=== PATIENT | male | born 1960 | race Caucasian/White ===

== ENCOUNTER 2017-09-05 15:23 | Emergency (ER) | payer SELFPAY ==
[2017-09-05 15:23] VITALS: BMI 26.4
[2017-09-05 15:49] VITALS: RESP 18; O2SAT 98
--- NOTE | 2017-09-05 16:02 | ED PDOC ---
Arrival/HPI - General Chief Complaint: Flu-like Symptoms Time Seen by Provider: 09/05/17 15:38 Historian: Patient - History of Present Illness Narrative History of Present Illness (Text): 09/05/17 15:59 57yo male with PMhx of hypertension present with complaint of generalized body ache, mild nonproductive cough since this morning. did not take any medication. Denies fever, chest pain, nausea, vomiting, abdominal pain, sick contact. Past Medical History - Provider Review Nursing Documentation Reviewed: Yes - Infectious Disease Hx of Infectious Diseases: None - Tetanus Immunization Tetanus Immunization: Unknown - Past Medical History Past Medical History: No Previous - Cardiac Hx Hypertension: Yes - Pulmonary Hx Respiratory Disorders: No - Neurological Hx Neurological Disorder: No - HEENT Hx HEENT Disorder: No - Renal Hx Renal Disorder: No - Endocrine/Metabolic Hx Endocrine Disorders: No - Hematological/Oncological Hx Blood Disorders: No - Integumentary Hx Dermatological Disorder: No - Musculoskeletal/Rheumatological Hx Musculoskeletal Disorders: No - Gastrointestinal Hx Gastrointestinal Disorders: No - Genitourinary/Gynecological Hx Genitourinary Disorders: No - Psychiatric Hx Depression: No Hx Substance Use: No - Past Surgical History Past Surgical History: No Previous - Anesthesia Hx Anesthesia: No - Suicidal Assessment Feels Threatened In Home Enviroment: No Family/Social History - Physician Review Nursing Documentation Reviewed: Yes Family/Social History: Unknown Family HX Smoking Status: Never Smoked Hx Alcohol Use: No Hx Substance Use: No Hx Substance Use Treatment: No Allergies/Home Meds Allergies/Adverse Reactions: Allergies No Known Allergies Allergy (Verified 11/16/13 20:21) Home Medications: Home Meds Medication Instructions Recorded Confirmed Amlodipine Besylate 10 mg PO DAILY 10/07/13 09/05/17 Review of Systems - Physician Review All systems were reviewed & negative as marked: Yes - Review of Systems Constitutional: Fatigue Eyes: Normal ENT: Sore Throat Respiratory: Cough Cardiovascular: Normal Gastrointestinal: Normal Genitourinary Male: Normal Musculoskeletal: Normal Skin: Normal Neurological: Normal Endocrine: Normal Hemo/Lymphatic: Normal Psychiatric: Normal Physical Exam Vital Signs Reviewed: Yes Vital Signs Temp Pulse Resp BP Pulse Ox 09/05/17 17:14 98.9 F 75 18 138/75 98 09/05/17 16:04 99.3 F 09/05/17 15:23 99.3 F 83 18 140/86 98 Temperature: Afebrile Blood Pressure: Normal Pulse: Regular Respiratory Rate: Normal Appearance: Positive for: Well-Appearing, Non-Toxic, Comfortable Pain Distress: None Mental Status: Positive for: Alert and Oriented X 3 - Systems Exam Head: Present: Atraumatic, Normocephalic Pupils: Present: PERRL Extroacular Muscles: Present: EOMI Conjunctiva: Present: Normal Mouth: Present: Moist Mucous Membranes Pharnyx: Present: Normal. No: ERYTHEMA, EXUDATE, TONSILS ENLARGED, Peritonsilar Swelling, Uvular Deviation, Muffled/Hoarse Voice, Strider, Soft Palate/Uvular Edema Neck: Present: Normal Range of Motion Respiratory/Chest: Present: Clear to Auscultation, Good Air Exchange. No: Respiratory Distress, Accessory Muscle Use, Wheezes, Decreased Breath Sounds, Rales, Retracting, Rhonchi Cardiovascular: Present: Regular Rate and Rhythm, Normal S1, S2. No: Murmurs Abdomen: Present: Normal Bowel Sounds. No: Tenderness, Distention, Peritoneal Signs Back: Present: Normal Inspection Upper Extremity: Present: Normal Inspection. No: Cyanosis, Edema Lower Extremity: Present: Normal Inspection. No: Edema Neurological: Present: GCS=15, CN II-XII Intact, Speech Normal Skin: Present: Warm, Dry, Normal Color. No: Rashes Psychiatric: Present: Alert, Oriented x 3, Normal Insight, Normal Concentration Medical Decision Making ED Course and Treatment: 09/05/17 17:07 Pt was hemodynamically stable and comfortable in ED. Ibuprofen was given in ED for body pain Rapid strep and flu was negative CXR nad 09/05/17 18:05 All result was DW the pt. His symptoms likely viral. will DC home with antitussive. Advised to take ibuprofen for pain. Rest and drink plenty of fluid. Referred to his PMD. TRT ED for any new or worsening symptoms. - Lab Interpretations Lab Results: Lab Results 09/05/17 16:07: Influenza Typ A,B (EIA) Negative for flu a/b, Grp A Beta Strep Ag Negative - RAD Interpretation Radiology Orders: 09/05/17 17:07 CHEST TWO VIEWS (PA/LAT) [RAD] Stat - Medication Orders Current Medication Orders: Discontinued Medications Ibuprofen (Motrin Tab) 600 mg PO STAT STA Stop: 09/05/17 15:53 Last Admin: 09/05/17 16:04 Dose: 600 mg MAR Pain/Vitals Document 09/05/17 16:04 ALVA (Rec: 09/05/17 16:04 JOThomas [facility] [place]-[id number]) Pain Reassessment Is This A Pain ReAssessment? No Sleep Is patient sleeping during reassessment? No Presence of Pain Presence of Pain No Vitals Temperature (97.6 F-99.6 F) 99.3 F Temperature Source Oral Disposition/Present on Arrival - Present on Arrival Any Indicators Present on Arrival: No History of DVT/PE: No History of Uncontrolled Diabetes: No Urinary Catheter: No History of Decub. Ulcer: No History Surgical Site Infection Following: None - Disposition Have Diagnosis and Disposition been Completed?: Yes Diagnosis: Viral syndrome Disposition: HOME/ ROUTINE Disposition Time: 18:10 Patient Plan: Discharge Condition: STABLE Discharge Instructions (ExitCare): Viral Syndrome (ED) Additional Instructions: Follow up with your doctor Drink plenty of fluid and rest Return to ED for any new or worsening symptoms Prescriptions: Benzonatate [Tessalon Perle] 100 mg PO TID #20 capsule Referrals: [facility] [place] [Outside] - Follow up with primary Forms: [employer] (Yakut)
[2017-09-05 17:15] VITALS: BP 138/75; PULSE 75; TEMP 98.9
--- NOTE | 2017-09-05 18:32 | RAD ---
HISTORY: cough COMPARISON: None available. TECHNIQUE: Chest PA and lateral FINDINGS: LUNGS: No focal consolidation. Please note that chest x-ray has limited sensitivity for the detection of pulmonary masses. PLEURA: No significant pleural effusion identified. No definite pneumothorax . CARDIOVASCULAR: The cardiomediastinal silhouette appears within normal limits of size. OSSEOUS STRUCTURES: Mild degenerative changes. VISUALIZED UPPER ABDOMEN: Unremarkable. OTHER FINDINGS: None. IMPRESSION: No focal consolidation, significant pleural effusion, or definite pneumothorax identified.
== END 2017-09-05 18:20 | disposition home or self-care (01) ==
LOC: ED 15:23
DX: B34.9 Viral infection, unspecified (principal); I10 Essential (primary) hypertension

== ENCOUNTER 2018-05-10 07:08 | Emergency (ER) | payer SELFPAY ==
[2018-05-10 07:27] VITALS: BMI 27.8
[2018-05-10 07:30] VITALS: RESP 18
--- NOTE | 2018-05-10 08:38 | ED PDOC ---
Arrival/HPI - General Historian: Tow Bar Driver (Trisha, number [id number]) <Orlando Kline - Last Filed: 05/10/18 08:56> - General Historian: Tow Bar Driver - History of Present Illness Time/Duration: < week Symptom Onset: Gradual Symptom Course: Intermittent Activities at Onset: Rest <Mark Butt - Last Filed: 05/10/18 09:20> - General Chief Complaint: Cough, Cold, Congestion Time Seen by Provider: 05/10/18 07:24 - History of Present Illness Narrative History of Present Illness (Text): Spoke to Ivorian speaking patient with distribution agent Trisha, number [id number]. (Orlando Kline) 05/10/18 08:26 Mr. Bonilla is a 58 year old male with PMHx HTN who presents with 2 days of subjective fever, headaches, and back/shoulder pain. He has had pains in his back and shoulders as well as subjective fevers and general fatigue for the last two days. Pt has not taken his temperature at home. He also has had headaches in a band-like pattern across the front of his head. Pt has been taking aleve with some relief of symptoms. He also has had a mild dry cough since today, denies any nasal congestion, sore throat, rhinorrhea, shortness of breath. 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 Denies any nausea, vomiting, diarrhea, abdominal pain, dizziness, chest pains. (Mark Butt) Past Medical History - Provider Review Nursing Documentation Reviewed: Yes - Infectious Disease Hx of Infectious Diseases: None - Tetanus Immunization Tetanus Immunization: Unknown - Past Medical History Past Medical History: No Previous - Cardiac Hx Cardiac Disorders: Yes Hx Hypertension: Yes - Pulmonary Hx Respiratory Disorders: No - Neurological Hx Neurological Disorder: No - HEENT Hx HEENT Disorder: No - Renal Hx Renal Disorder: No - Endocrine/Metabolic Hx Endocrine Disorders: No - Hematological/Oncological Hx Blood Disorders: No - Integumentary Hx Dermatological Disorder: No - Musculoskeletal/Rheumatological Hx Musculoskeletal Disorders: No - Gastrointestinal Hx Gastrointestinal Disorders: No - Genitourinary/Gynecological Hx Genitourinary Disorders: No - Psychiatric Hx Depression: No Hx Substance Use: No - Past Surgical History Past Surgical History: No Previous - Anesthesia Hx Anesthesia: No - Suicidal Assessment Feels Threatened In Home Enviroment: No <Mark Butt - Last Filed: 05/10/18 09:20> Family/Social History - Physician Review Nursing Documentation Reviewed: Yes <Orlando Kline - Last Filed: 05/10/18 08:56> - Physician Review Nursing Documentation Reviewed: Yes Family/Social History: No Known Family HX Smoking Status: Never Smoked Hx Alcohol Use: Yes Frequency of alcohol use: Socially Hx Substance Use: No Hx Substance Use Treatment: No <Mark Butt - Last Filed: 05/10/18 09:20> Allergies/Home Meds <Orlando Kline - Last Filed: 05/10/18 08:56> <Mark Butt - Last Filed: 05/10/18 09:20> Allergies/Adverse Reactions: Allergies No Known Allergies Allergy (Verified 05/10/18 07:30) Home Medications: Home Meds Medication Instructions Recorded Confirmed amLODIPine [Norvasc] 10 mg PO DAILY 05/10/18 05/10/18 Review of Systems - Physician Review All systems were reviewed & negative as marked: Yes - Review of Systems Constitutional: Fevers (tactile fever) Gastrointestinal: absent: Appetite Changes <Orlando Kline - Last Filed: 05/10/18 08:56> - Physician Review All systems were reviewed & negative as marked: Yes - Review of Systems Constitutional: Fatigue, Fevers. absent: Weight Change Eyes: Normal. absent: Vision Changes, Photophobia ENT: Normal. absent: Sore Throat, Rhinorrhea, Epistaxis, Sinus Congestion Respiratory: Cough. absent: SOB, Sputum, Wheezing Cardiovascular: Normal. absent: Chest Pain, Palpitations, Calf Pain Gastrointestinal: Normal. absent: Abdominal Pain, Constipation, Diarrhea, Nausea, Vomiting Musculoskeletal: Back Pain, Other (b/l shoulder pain). absent: Neck Pain Skin: Other (+Mild bruising on distal legs that he states is work related). absent: Rash, Pruritis Neurological: Normal. absent: Headache, Dizziness Endocrine: Normal. absent: Polyuria, Polydipsia <Mark Butt - Last Filed: 05/10/18 09:20> Physical Exam Vital Signs Reviewed: Yes Temperature: Afebrile Blood Pressure: Normal Pulse: Regular Respiratory Rate: Normal - Systems Exam Ears: Present: Normal Pharnyx: Present: Normal Respiratory/Chest: Present: Clear to Auscultation, Rhonchi (rhonchi on left, clear with coughing) <Orlando Kline - Last Filed: 05/10/18 08:56> Appearance: Positive for: Well-Appearing, Non-Toxic Pain Distress: None Mental Status: Positive for: Alert and Oriented X 3 - Systems Exam Head: Present: Atraumatic, Normocephalic Pupils: Present: PERRL Extroacular Muscles: Present: EOMI Conjunctiva: Present: Normal Mouth: Present: Dry Nose (External): Present: Atraumatic. No: Abrasion, Contusion Neck: Present: Normal Range of Motion. No: JVD Respiratory/Chest: Present: Clear to Auscultation, Good Air Exchange, Rhonchi. No: Respiratory Distress Cardiovascular: Present: Regular Rate and Rhythm, Normal S1, S2. No: Murmurs Abdomen: Present: Normal Bowel Sounds. No: Tenderness, Distention, Rebound, Guarding Upper Extremity: Present: Normal Inspection, NORMAL PULSES. No: Cyanosis, Edema Lower Extremity: Present: Normal Inspection, NORMAL PULSES. No: Edema, Cyanosis Neurological: Present: GCS=15, CN II-XII Intact, Speech Normal Skin: Present: Warm, Dry, Normal Color. No: Rashes Psychiatric: Present: Alert, Oriented x 3, Normal Insight <Mark Butt - Last Filed: 05/10/18 09:20> Vital Signs Temp Pulse Resp BP Pulse Ox 05/10/18 07:27 98.8 F 68 18 131/87 98 ED Course and Treatment: 05/10/18 08:47 Impression: 58 year old male presents to the emergency department for weakness, cough, cold, and congestion for past 2-3 days. In agreement with resident note, which includes further HPI details. Patient was seen and evaluated with resident, came up with plan and treatment together. Differential Diagnosis included but are not limited to: cough, r/o Pneumonia Plan: -- Chest X-Ray -- Reassess and disposition Prior Visits: Notes and results from previous visits were reviewed. Patient was last seen in the emergency department on 09/05/17 for generalized body ache and mild nonproductive cough. Patient was discharged home and directed to follow up with PMD. Progress Notes: (Orlando Kline) - RAD Interpretation Radiology Orders: 05/10/18 08:23 X-RAY [CHEST TWO VIEWS (PA/LAT)] [RAD] Stat - Scribe Statement The provider has reviewed the documentation as recorded by the Scribe <Orlando Kline - Last Filed: 05/10/18 08:56> <Mark Butt - Last Filed: 05/10/18 09:20> - Scribe Statement Tana Fields All medical record entries made by the Scribe were at my direction and personally dictated by me. I have reviewed the chart and agree that the record accurately reflects my personal performance of the history, physical exam, medical decision making, and the department course for this patient. I have also personally directed, reviewed, and agree with the discharge instructions and disposition. (Orlando Kline) Disposition/Present on Arrival <Orlando Kline - Last Filed: 05/10/18 08:56> - Present on Arrival History of DVT/PE: No History of Uncontrolled Diabetes: No Urinary Catheter: No History of Decub. Ulcer: No History Surgical Site Infection Following: None - Disposition Have Diagnosis and Disposition been Completed?: Yes Disposition Time: 09:19 <Mark Butt - Last Filed: 05/10/18 09:20> - Disposition Diagnosis: Viral syndrome, Bronchitis Disposition: HOME/ ROUTINE Condition: IMPROVED Discharge Instructions (ExitCare): Acute Bronchitis Additional Instructions: JANESSA CALDWELL, thank you for letting us take care of you today. Your provider was Orlando Kline DO and you were treated for Bronchitis Viral Syndrome. The emergency medical care you received today was directed at your acute symptoms. If you were prescribed any medication, please fill it and take as directed. It may take several days for your symptoms to resolve. Return to the Emergency Department if your symptoms worsen, do not improve, or if you have any other problems. Please contact your doctor or call one of the physicians/clinics you have been referred to that are listed on the Patient Visit Information form that is included in your discharge packet. Bring any paperwork you were given at discharge with you along with any medications you are taking to your follow up visit. Our treatment cannot replace ongoing medical care by a primary care provider outside of the emergency department. Thank you for allowing the [facility] team to be part of your care today. If you had an X-Ray or CT scan: A Radiologist will review the ED reading if any change in treatment is needed we will contact you. If you had a blood, urine, or wound culture: It will take several days for the results, if any change in treatment is needed we will contact you. If you had an STI test: It will take 48 hours for the results. Please call after 1 week if you have not heard back. Prescriptions: guaiFENesin/Dextromethorphan [guaiFENesin-DM] 10 ml PO Q8 PRN #2 PRN Reason: Cough Ibuprofen [Motrin] 600 mg PO Q6 PRN #30 tab PRN Reason: Pain, Moderate (4-7) Referrals: Non [facility] Provider, [Non-Staff] - Follow up with primary Forms: [employer] (New Zealander), WORK NOTE
--- NOTE | 2018-05-10 09:13 | RAD ---
Date of service: 05/10/2018 HISTORY: cough COMPARISON: 09/05/2017 TECHNIQUE: Chest PA and lateral FINDINGS: LUNGS: No active pulmonary disease. PLEURA: No significant pleural effusion identified. No pneumothorax apparent. CARDIOVASCULAR: Normal. OSSEOUS STRUCTURES: No significant abnormalities. VISUALIZED UPPER ABDOMEN: Normal. OTHER FINDINGS: None. IMPRESSION: No active disease.
[2018-05-10 09:39] VITALS: BP 134/72; PULSE 72; TEMP 98.7; O2SAT 99
== END 2018-05-10 09:10 | disposition home or self-care (01) ==
LOC: ED 07:08
DX: J40 Bronchitis, not specified as acute or chronic (principal); B34.9 Viral infection, unspecified; I10 Essential (primary) hypertension

== ENCOUNTER 2018-09-14 14:36 | Emergency (ER) | payer SELFPAY ==
[2018-09-14 14:36] VITALS: BMI 27.8
--- NOTE | 2018-09-14 15:38 | ED PDOC ---
Arrival/HPI - General Chief Complaint: Flu-like Symptoms Time Seen by Provider: 09/14/18 14:43 Historian: Patient - History of Present Illness Narrative History of Present Illness (Text): 09/14/18 15:35 A 58 year old female presents to the emergency department with a complaint of 2 day history of nasal congestion, subjective fever, non- productive cough and generalized aches. The patient is requesting to be tested for the flu. He also reports occasional heart burn which occurs only at night for the last 2 days which he believes is secondary to otc medication he is taking for his cold. The patient denies chills, headache, dizziness, chest pain, shortness of breath, dyspnea on exertion, abdominal pain, nausea, vomiting, diarrhea, back pain, neck pain, urinary/bowel changes, or any other complaint. Time/Duration: Other (2 days) Symptom Onset: Sudden Symptom Course: Unchanged Activities at Onset: Rest, Light Context: Home Past Medical History - Provider Review Nursing Documentation Reviewed: Yes - Infectious Disease Hx of Infectious Diseases: None - Tetanus Immunization Tetanus Immunization: Unknown - Past Medical History Past Medical History: No Previous - Cardiac Hx Cardiac Disorders: Yes Hx Hypertension: Yes - Pulmonary Hx Respiratory Disorders: No - Neurological Hx Neurological Disorder: No - HEENT Hx HEENT Disorder: No - Renal Hx Renal Disorder: No - Endocrine/Metabolic Hx Endocrine Disorders: No - Hematological/Oncological Hx Blood Disorders: No - Integumentary Hx Dermatological Disorder: No - Musculoskeletal/Rheumatological Hx Musculoskeletal Disorders: No - Gastrointestinal Hx Gastrointestinal Disorders: No - Genitourinary/Gynecological Hx Genitourinary Disorders: No - Psychiatric Hx Depression: No Hx Substance Use: No - Past Surgical History Past Surgical History: No Previous - Anesthesia Hx Anesthesia: No Hx Anesthesia Reactions: No Hx Malignant Hyperthermia: No - Suicidal Assessment Feels Threatened In Home Enviroment: No Family/Social History - Physician Review Nursing Documentation Reviewed: Yes Family/Social History: No Known Family HX Smoking Status: Never Smoked Hx Alcohol Use: Yes Hx Substance Use: No Hx Substance Use Treatment: No Allergies/Home Meds Allergies/Adverse Reactions: Allergies No Known Allergies Allergy (Verified 05/10/18 07:30) Home Medications: Home Meds Medication Instructions Recorded Confirmed amLODIPine [Norvasc] 10 mg PO DAILY 05/10/18 05/10/18 Review of Systems - Review of Systems Constitutional: Fevers ENT: Sinus Congestion. absent: Sore Throat Respiratory: Cough. absent: SOB Cardiovascular: absent: Chest Pain, LAMAR Gastrointestinal: absent: Abdominal Pain, Stool Changes, Constipation, Diarrhea, Nausea, Vomiting Genitourinary Male: absent: Dysuria, Frequency, Urinary Output Changes Musculoskeletal: Arthralgias, Myalgias. absent: Back Pain, Neck Pain Skin: absent: Rash Neurological: absent: Headache, Dizziness Psychiatric: absent: Anxiety, Depression Physical Exam Vital Signs Reviewed: Yes Vital Signs Temp Pulse Resp BP Pulse Ox 09/14/18 14:36 99.7 F H 81 18 149/76 96 Temperature: Afebrile Blood Pressure: Normal Pulse: Regular Respiratory Rate: Normal Appearance: Positive for: Well-Appearing, Non-Toxic, Comfortable Pain Distress: None Mental Status: Positive for: Alert and Oriented X 3 - Systems Exam Head: Present: Atraumatic, Normocephalic Pupils: Present: PERRL Extroacular Muscles: Present: EOMI Conjunctiva: Present: Normal Mouth: Present: Moist Mucous Membranes Neck: Present: Normal Range of Motion. No: MIDLINE TENDERNESS Respiratory/Chest: Present: Clear to Auscultation, Good Air Exchange. No: Respiratory Distress, Accessory Muscle Use Cardiovascular: Present: Regular Rate and Rhythm, Normal S1, S2. No: Murmurs Abdomen: No: Tenderness, Distention, Peritoneal Signs Back: Present: Normal Inspection Upper Extremity: Present: Normal Inspection. No: Cyanosis, Edema Lower Extremity: Present: Normal Inspection. No: Edema Neurological: Present: GCS=15, CN II-XII Intact, Speech Normal Skin: Present: Warm, Dry, Normal Color. No: Rashes Psychiatric: Present: Alert, Oriented x 3, Normal Insight, Normal Concentration Medical Decision Making ED Course and Treatment: 09/14/18 15:37 Impression: A 58 year old male presents to the emergency department with a complaint of 2 day history of nasal congestion, subjective fever, non- productive cough and generalized aches. Symptoms consistent with viral uri. Plan: -- EKG -- Chest X-ray -- Toradol -- Reassess and disposition Progress Notes: 09/14/18 16:52 EKG shows NSR at 81bpm with pacs. No ST changes. Cxray shows biapical thickening. Influenza negative. On reevaluation patient feels better. Him and daughter were given detailed return instructions and will return with any worsening symptoms - RAD Interpretation Radiology Orders: 09/14/18 14:47 CHEST TWO VIEWS (PA/LAT) [RAD] Stat - EKG Interpretation Interpreted by ED Physician: Yes Type: 12 lead EKG - Medication Orders Current Medication Orders: Discontinued Medications Ketorolac Tromethamine (Toradol) 30 mg IM STAT STA Stop: 09/14/18 15:31 - Scribe Statement The provider has reviewed the documentation as recorded by the Lopezibe Mellisa Elliott Provider Scribe Attestation: All medical record entries made by the Scribe were at my direction and personally dictated by me. I have reviewed the chart and agree that the record accurately reflects my personal performance of the history, physical exam, medical decision making, and the department course for this patient. I have also personally directed, reviewed, and agree with the discharge instructions and disposition. Disposition/Present on Arrival - Present on Arrival Any Indicators Present on Arrival: No History of DVT/PE: No History of Uncontrolled Diabetes: No Urinary Catheter: No History of Decub. Ulcer: No History Surgical Site Infection Following: None - Disposition Have Diagnosis and Disposition been Completed?: Yes Diagnosis: Pneumonia Disposition: HOME/ ROUTINE Disposition Time: 17:33 Patient Plan: Discharge Patient Problems: Current Active Problems Problem Status Onset Pneumonia Acute Condition: GOOD Discharge Instructions (ExitCare): Community-Acquired Pneumonia, Adult (DC) Prescriptions: RX: Azithromycin 250 mg PO DAILY #6 tablet Benzonatate [Tessalon Perles] 100 mg PO TID PRN #20 sgl PRN Reason: Cough Forms: [employer] (Polish)
--- NOTE | 2018-09-14 16:20 | CARD ---
APPROVED REPORT Date of service: 09/14/2018 EKG Measurement Heart [id number] <Conclusion> Sinus rhythm with premature atrial complexes PRWP LVH by voltage
--- NOTE | 2018-09-14 17:23 | RAD ---
HISTORY: cough COMPARISON: Chest x-ray performed 05/10/18 TECHNIQUE: Chest PA and lateral FINDINGS: LUNGS: Biapical pleural thickening. No focal consolidation. Please note that chest x-ray has limited sensitivity for the detection of pulmonary masses. PLEURA: No significant pleural effusion identified. No definite pneumothorax . CARDIOVASCULAR: Heart size appears within normal limits. Atherosclerotic calcifications. OSSEOUS STRUCTURES: Degenerative changes. VISUALIZED UPPER ABDOMEN: Unremarkable. OTHER FINDINGS: None. IMPRESSION: Biapical pleural thickening.
[2018-09-14 18:05] VITALS: BP 135/74; PULSE 86; RESP 16; TEMP 98.5; O2SAT 97
== END 2018-09-14 18:03 | disposition home or self-care (01) ==
LOC: ED 14:36
DX: J18.9 Pneumonia, unspecified organism (principal); I10 Essential (primary) hypertension
CPT/HCPCS: 71046; 87804; 93005; 96372; 99282; J1885

== ENCOUNTER 2018-11-06 15:49 | Outpatient (CLI) | payer SELFPAY | END 2018-11-06 15:50 | disposition home or self-care (01) | LOC: RAD 15:49 ==